=== PATIENT | female | born 2000 | race Caucasian/White ===

== ENCOUNTER 2021-05-11 10:24 | Inpatient (IN) ==
--- NOTE | 2021-05-11 10:36 | History & Physical Report ---
Date of Service May 11, 2021 Assessment & Plan (1) Active labor at term: (2) Post-dates : Plan: admit, iv, labs. will plan arom. does not desire epidural. will see if arom improves labor pattern History of Present Illness Chief Complaint: contractions Primary Care Provider: Flores Burton PA-C 20yo at 41+wks aneesh presents to L&D with above cc. Was seen in office and noting some ctx and cx exam 4-5cm and sent to L&D. No rom, no vb. PNC 1. teen PNL rhpos, ri, gbs neg, covid neg 05/07 OBH: g1 GYNH: nl paps no stds. 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 Beliefs That Will Affect Care: None marital status: Single marital status details: anila Lucero (20) [phone] Current Living Situation: Parent Current Living Situation Comment: Patient lives with her mother current occupational status: employed current occupation: [employer] Other Information That Helps Us Care for You: No Feels Safe at Home: No Is there a partner from a previous relationship who is making you feel unsafe now?: No Any Concerns about Your Family Situation: No Would You Like to Speak to Someone About Your Situation: No Safety Concerns: Feels Safe At This Time Assistive Devices: None Review of Systems as per Subjective / HPI Physical Exam Constitutional: WD/WN, vitals as above Respiratory: normal respiratory effort, lungs clear to auscultation Cardiovascular: Rate/Rhythm: regular rate and regular rhythm Gastrointestinal (Abdomen): soft gravid nt Musculoskeletal: no edema nontender calves Neurologic: grossly normal Psychiatric: A+Ox3, euthymic affect Genitourinary: OB Exam Monitor Tracing: + external FHT monitor used, + external uterine monitor used (q6), + category I and + normal FHT variability Coding Level of Care Code None Diagnoses Active labor at term Post-dates O48.0
[2021-05-11] MEDS ORDERED: OXYTOCIN 30 UNITS/500 ML BAG IV PRN ×2 (10:37→17:00)
[2021-05-11] MEDS: LACTATED RINGER'S 1,000 ML IV PRN ×4 (11:09→20:15)
[2021-05-11 11:16] LABS: Hematocrit (blood only) 40.1 % (37-47); Hemoglobin 13.7 g/dL (12.0-16.0); Mean Corpuscular Hemoglobin 31.8 pg (25-34); Mean Corpuscular Hgb Conc 34.2 g/dL (32-36); Mean Platelet Volume 11.5 fL (7.4-10.4); Platelet Count 240 K/uL (130-400); RDW Coefficient of Variation 13.7 % (11.5-14.5); RDW Standard Deviation 46.7 fL (36.4-46.3); Red Blood Count 4.31 M/uL (4.2-5.4); White Blood Count 17.18 K/uL (4.8-10.8)
--- NOTE | 2021-05-11 12:29 | Labor Progress Brief Note ---
Date of Service May 11, 2021 Subjective Patient noting contractions. Offered arom at this time and declines. Would like expectant management. Assessment & Plan (1) Active labor at term: Plan: Will allow expectant management for now. Will recheck in a couple of hours. If not change would recommend arom at that time. She is agreeable. Desires unmedicated. Admission and Anticipated Discharge Date Admission Date: May 11, 2021 Physical Exam Physical Exam: cx--4/80/-2/post toco--q3-5min efm--130s wtih mod variability, accels to 160s, no decels Results & Data ([facility]) Vital Signs (Past 12 Hours) Vital Signs Temp Pulse Resp BP 05/11/21 11:11 36.7 C 75 18 126/70 05/11/21 10:40 18 Coding Level of Care Code None Diagnoses Active labor at term
--- NOTE | 2021-05-11 14:36 | Labor Progress Brief Note ---
Date of Service May 11, 2021 Subjective has not accepted arom. ctx irregular. offered her d/c home vs. proceed with induction. not in active labor Assessment & Plan (1) Post-dates : (2) Encounter for induction of labor: Plan: Discussed with patient that cx not changed from prior examiner and no regular labor pattern. can offer induction today or d/c home and return in am as planned for induction. call sooner in labor. she agrees to proceed. discussed her nervousness about what is to come. allowed to ask questions and answered to best of my ability and to her apparent satisfaction. will see how arom helps labor pattern or will need to add pitocin which pt was also aware of before accepting arom. Admission and Anticipated Discharge Date Admission Date: May 11, 2021 Physical Exam Constitutional: WD/WN, vitals as above Genitourinary: Manual OB Exam: + cervical dilation 4 cm, + cervical effacement 80%, + station -2 and + amniotic fluid (AROM) meconium OB Exam Monitor Tr acing: + external FHT monitor used, + external uterine monitor used (q2-6), + category I and + normal FHT variability Results & Data ([facility]) Vital Signs (Past 12 Hours) Vital Signs Temp Pulse Resp BP 05/11/21 14:29 68 113/60 05/11/21 11:11 98.1 F 75 18 126/70 05/11/21 10:40 18 Coding Level of Care Code None Diagnoses Post-dates O48.0 Encounter for induction of labor Z34.90
[2021-05-11] MEDS ORDERED: SODIUM CHLORIDE 0.9% INJ 10 ML VIAL ONE (15:28)
[2021-05-11] MEDS ORDERED: BUPIVACAINE 0.25% 30 ML VIAL ONE (15:28)
[2021-05-11] MEDS ORDERED: fentaNYL citrate 100 MCG/2 ML VIAL ONE (15:28)
[2021-05-11] MEDS ORDERED: ePHEDrine sulfate 50 MG/ML AMP ONE (15:28)
[2021-05-11] MEDS ORDERED: fentaNYL 2MCG/ML ROPIVACAINE 1.25MG/ML 100 ML BAG EPI ONE (15:29)
[2021-05-11] MEDS ORDERED: ePHEDrine sulfate 50 MG/ML AMP IV PRN (16:14)
[2021-05-11] MEDS ORDERED: fentaNYL 2MCG/ML ROPIVACAINE 1.25MG/ML 100 ML BAG EPI PRN (16:14)
[2021-05-11] MEDS ORDERED: NALBUPHINE HCL INJ 10 MG/ML AMP IV PRN (16:14)
[2021-05-11] MEDS ORDERED: diphenhydrAMINE 50 MG/ML VIAL IV PRN (16:14)
[2021-05-11] MEDS ORDERED: NALOXONE HCL 1 MG in SODIUM CHLORIDE 0.9% 1000ML 1,000 ML IV PRN (16:14)
[2021-05-11] MEDS ORDERED: ONDANSETRON INJ 2 MG/ML 2 ML VIAL IV PRN (16:14)
[2021-05-11] MEDS ORDERED: NALOXONE HCL 0.4 MG/1 ML VIAL/CARP IV PRN (16:14)
--- NOTE | 2021-05-11 16:15 | Anesthesiology Consultation ---
Date of Service May 11, 2021 Assessment & Plan Chart Review Chart Review: Patient NOT seen in Pre Admission Testing and Acceptable Risk for Labor Epidural Consults Requested none ASA ASA2 Proposed Anesthesia Anesthesia Type: Labor Epidural and CSE Risk / Benefits Reviewed With: PT / POA / Parent / Guardian, Accepts Plan and Informed Consent Obtained History Height/Weight Height: 5 ft 3 in Weight: 84.368 kg Allergies Allergy/AdvReac Type Severity Reaction Status Date / Time No Known Allergies Allergy Verified 05/11/21 09:16 Medications Home Medications Medication Instructions Recorded Confirmed Last Taken No Known Home Medications 04/22/21 05/11/21 Unknown Active Medications Generic Name Dose Route Start Last Admin Trade Name Freq PRN Reason Stop Dose Admin Lactated Ringer's 1,000 mls @ 125 mls/hr 05/11/21 10:37 05/11/21 15:43 Lr IV 05/13/21 10:36 999 mls/hr .Q8H PRN Administration L&D Protocol Protocol NPO Date Last Intake of Fluids: 05/11/21 Time Last Intake of Fluids: 12:00 Date Last Intake of Solids: 05/10/21 Time Last Intake of Solids: 18:00 Past Medical History Medical History History of chicken pox Exercise / Class Metabolic Activity II 4-5 Yardwork/Stairs/Walk up hill Past Family History Family History Mother Diabetes Denies family history of Ovarian cancer Breast cancer Colorectal cancer Past Surgical History Surgical History No history of previous surgery Past Anesthesia History No Hx of Anesthesia Complications and No Family Hx of Anesthesia Complications History of PONV No Hx of PONV and No Hx of Motion Sickness Social History Smoking Status: Never smoker Hx Alcohol Use: No Hx Substance Use: No Review of Systems no chest pain or sob Physical Exam Vital Signs Last Vital Signs Temp 36.7 C 05/11/21 14:29 Pulse 80 05/11/21 16:11 Resp 16 05/11/21 14:29 BP 102/63 05/11/21 15:19 Pulse Ox 100 05/11/21 16:11 ENMT Mouth: no TMJ abnormality Thyromental Distance: > or= 3.5 Finger Breadths Mallampati Class: II Neck normal visual inspection Respiratory normal respiratory effort Auscultation: lungs clear to auscultation bilaterally Cardiovascular Rate/Rhythm: regular rate and regular rhythm Musculoskeletal Spine: normal cervical ROM Neurologic moves all extremities Psychiatric Orientation: alert and oriented x 3 Testing Laboratory Results 05/11/21 10:59
--- NOTE | 2021-05-11 17:02 | Labor Progress Brief Note ---
Date of Service May 11, 2021 Subjective pt now comfortable with epidural. Assessment & Plan (1) Post-dates : (2) Encounter for induction of labor: (3) Meconium in amniotic fluid: Plan: need to add pitocin as no evidence of labor since arom. fhts categ 1. Admission and Anticipated Discharge Date Admission Date: May 11, 2021 Physical Exam Constitutional: WD/WN, vitals as above Genitourinary: Manual OB Exam: + cervical dilation 4 cm, + cervical effacement 80% and + station -2 OB Exam Monitor Tracing: + external FHT monitor used, + external uterine monitor used (q2-5), + category I and + normal FHT variability Results & Data ([facility]) Vital Signs (Past 12 Hours) Vital Signs Temp Pulse Resp BP Pulse Ox 05/11/21 16:57 86 93/55 L 05/11/21 16:56 73 99 05/11/21 16:55 67 96/55 L 05/11/21 16:53 67 95/69 L 05/11/21 16:51 75 90/52 L 98 05/11/21 16:49 68 18 90/51 L 05/11/21 16:47 72 97/51 L 05/11/21 16:46 73 98 05/11/21 16:45 77 106/54 L 05/11/21 16:44 70 106/51 L 05/11/21 16:41 81 97 05/11/21 16:39 73 18 101/50 L 05/11/21 16:37 73 18 97/52 L 05/11/21 16:36 73 99/51 L 98 05/11/21 16:31 70 106/48 L 98 05/11/21 16:29 69 110/60 05/11/21 16:27 92 H 121/74 05/11/21 16:26 85 99 05/11/21 16:21 93 H 99 05/11/21 16:16 76 99 05/11/21 16:11 80 100 05/11/21 16:06 80 100 05/11/21 16:01 65 99 05/11/21 15:56 69 99 05/11/21 15:51 62 99 05/11/21 15:46 66 100 05/11/21 15:41 82 100 05/11/21 15:26 74 98 05/11/21 15:21 73 97 05/11/21 15:19 72 102/63 05/11/21 14:29 98.1 F 68 16 113/60 05/11/21 11:11 98.1 F 75 18 126/70 05/11/21 10:40 18 Coding Level of Care Code None Diagnoses Post-dates O48.0 Encounter for induction of labor Z34.90 Meconium in amniotic fluid P96.83
--- NOTE | 2021-05-11 19:58 | Labor Progress Brief Note ---
Date of Service May 11, 2021 Subjective pt comfortable Assessment & Plan (1) Post-dates : (2) Encounter for induction of labor: (3) Meconium in amniotic fluid: Plan: good cx change. pit at 3. will try amnioinfusion to see if fluid helps poss cord compression although last 5min better traced fhts and looks more like early decels. +scalp stim response. Admission and Anticipated Discharge Date Admission Date: May 11, 2021 Physical Exam Constitutional: WD/WN, vitals as above Genitourinary: Manual OB Exam: + cervical dilation 7 cm, + cervical effacement 100% and + station -1 OB Exam Monitor Tracing: + external FHT monitor used (120 mod variability, ?early decels vs variables), + intra-uterine pressure catheter used, + category II, + normal FHT variability and + variable decelerations Results & Data ([facility]) Vital Signs (Past 12 Hours) Vital Signs Temp Pulse Resp BP Pulse Ox 05/11/21 19:51 71 100 05/11/21 19:46 69 99 05/11/21 19:41 66 110/61 100 05/11/21 19:36 63 100 05/11/21 19:31 73 100 05/11/21 19:26 70 100 05/11/21 19:25 71 114/62 05/11/21 19:21 69 99 05/11/21 19:16 67 100 05/11/21 19:12 98.2 F 18 05/11/21 19:11 66 100 05/11/21 19:10 70 111/61 05/11/21 19:06 64 100 05/11/21 19:01 81 99 05/11/21 18:56 66 115/65 100 05/11/21 18:51 65 100 05/11/21 18:46 70 100 05/11/21 18:41 67 100 05/11/21 18:40 60 110/66 05/11/21 18:36 63 99 05/11/21 18:31 61 100 05/11/21 18:26 64 100 05/11/21 18:25 54 L 126/73 05/11/21 18:21 58 L 99 05/11/21 18:16 59 L 99 05/11/21 18:11 59 L 96 05/11/21 18:10 57 L 125/70 05/11/21 18:06 67 100 05/11/21 18:01 57 L 99 05/11/21 17:57 58 L 20 121/70 05/11/21 17:56 62 97 05/11/21 17:51 65 98 05/11/21 17:46 58 L 100 05/11/21 17:41 66 98 05/11/21 17:39 59 L 118/66 05/11/21 17:36 70 99 05/11/21 17:34 52 L 113/62 05/11/21 17:31 54 L 98 05/11/21 17:29 56 L 20 116/62 05/11/21 17:26 55 L 98 05/11/21 17:24 53 L 115/61 05/11/21 17:21 67 98 05/11/21 17:20 65 112/58 L 05/11/21 17:16 65 97 05/11/21 17:13 63 113/56 L 05/11/21 17:11 64 98 05/11/21 17:09 180/121 H 05/11/21 17:06 67 99 05/11/21 17:01 62 98 05/11/21 16:57 97.5 F L 86 18 93/55 L 05/11/21 16:56 73 99 05/11/21 16:55 67 18 96/55 L 05/11/21 16:53 67 95/69 L 05/11/21 16:51 75 18 90/52 L 98 05/11/21 16:49 68 18 90/51 L 05/11/21 16:47 72 18 97/51 L 05/11/21 16:46 73 98 05/11/21 16:45 77 18 106/54 L 05/11/21 16:44 70 18 106/51 L 05/11/21 16:41 81 97 05/11/21 16:39 73 18 101/50 L 05/11/21 16:37 73 18 97/52 L 05/11/21 16:36 73 99/51 L 98 05/11/21 16:31 70 106/48 L 98 05/11/21 16:29 69 110/60 05/11/21 16:27 92 H 121/74 05/11/21 16:26 85 99 05/11/21 16:21 93 H 99 05/11/21 16:16 76 99 05/11/21 16:11 80 100 05/11/21 16:06 80 100 05/11/21 16:01 65 99 05/11/21 15:56 69 99 05/11/21 15:51 62 99 05/11/21 15:46 66 100 05/11/21 15:41 82 100 05/11/21 15:26 74 98 05/11/21 15:21 73 97 05/11/21 15:19 72 102/63 05/11/21 14:29 98.1 F 68 16 113/60 05/11/21 11:11 98.1 F 75 18 126/70 05/11/21 10:40 18 Coding Level of Care Code None Diagnoses Post-dates O48.0 Encounter for induction of labor Z34.90 Meconium in amniotic fluid P96.83
[2021-05-11] MEDS ORDERED: OR MISCELLANEOUS MED XX ONE (21:02)
--- NOTE | 2021-05-11 21:27 | Labor Progress Brief Note ---
Date of Service May 11, 2021 Subjective no pain issues Assessment & Plan (1) Post-dates : (2) Encounter for induction of labor: (3) Meconium in amniotic fluid: Plan: fhts categ 1. good cx change. will anticip 2nd stage soon. pit has remained off. with good cx change will just give more time. Admission and Anticipated Discharge Date Admission Date: May 11, 2021 Physical Exam Constitutional: WD/WN, vitals as above Genitourinary: Manual OB Exam: + cervical dilation 9 cm, + cervical effacement 100% and + station 0 OB Exam Monitor Tracing: + external FHT monitor used, + intra-uterine pressure catheter used (q3), + category I (early decels +scalp stim response. ) and + normal FHT variability Results & Data ([facility]) Vital Signs (Past 12 Hours) Vital Signs Temp Pulse Resp BP Pulse Ox 05/11/21 21:21 63 100 05/11/21 21:16 92 H 100 05/11/21 21:11 66 100 05/11/21 21:10 63 103/57 L 05/11/21 21:06 68 99 05/11/21 21:01 69 100 05/11/21 20:56 78 99/57 L 100 05/11/21 20:51 62 100 05/11/21 20:46 64 100 05/11/21 20:41 65 100 05/11/21 20:40 69 99/54 L 05/11/21 20:36 71 100 05/11/21 20:31 72 100 05/11/21 20:30 18 05/11/21 20:26 67 100 05/11/21 20:21 73 100 05/11/21 20:16 66 100 05/11/21 20:11 84 100 05/11/21 20:10 66 111/63 05/11/21 20:06 72 100 05/11/21 20:01 66 100 05/11/21 20:00 18 05/11/21 19:56 70 100 05/11/21 19:55 75 113/62 05/11/21 19:51 71 100 05/11/21 19:46 69 99 05/11/21 19:41 66 110/61 100 05/11/21 19:36 63 100 05/11/21 19:31 73 100 03/21/22 19:26 70 100 05/11/21 19:25 71 114/62 05/11/21 19:21 69 99 05/11/21 19:16 67 100 05/11/21 19:12 98.2 F 18 05/11/21 19:11 66 100 05/11/21 19:10 70 111/61 05/11/21 19:06 64 100 05/11/21 19:01 81 99 05/11/21 18:56 66 115/65 100 05/11/21 18:51 65 100 05/11/21 18:46 70 100 05/11/21 18:41 67 100 05/11/21 18:40 60 110/66 05/11/21 18:36 63 99 05/11/21 18:31 61 100 05/11/21 18:26 64 100 05/11/21 18:25 54 L 126/73 05/11/21 18:21 58 L 99 05/11/21 18:16 59 L 99 05/11/21 18:11 59 L 96 05/11/21 18:10 57 L 125/70 05/11/21 18:06 67 100 05/11/21 18:01 57 L 99 05/11/21 17:57 58 L 20 121/70 05/11/21 17:56 62 97 05/11/21 17:51 65 98 05/11/21 17:46 58 L 100 05/11/21 17:41 66 98 05/11/21 17:39 59 L 118/66 05/11/21 17:36 70 99 05/11/21 17:34 52 L 113/62 05/11/21 17:31 54 L 98 05/11/21 17:29 56 L 20 116/62 05/11/21 17:26 55 L 98 05/11/21 17:24 53 L 115/61 05/11/21 17:21 67 98 05/11/21 17:20 65 112/58 L 05/11/21 17:16 65 97 05/11/21 17:13 63 113/56 L 05/11/21 17:11 64 98 05/11/21 17:09 180/121 H 05/11/21 17:06 67 99 05/11/21 17:01 62 98 05/11/21 16:57 97.5 F L 86 18 93/55 L 05/11/21 16:56 73 99 05/11/21 16:55 67 18 96/55 L 05/11/21 16:53 67 95/69 L 05/11/21 16:51 75 18 90/52 L 98 05/11/21 16:49 68 18 90/51 L 05/11/21 16:47 72 18 97/51 L 05/11/21 16:46 73 98 05/11/21 16:45 77 18 106/54 L 05/11/21 16:44 70 18 106/51 L 05/11/21 16:41 81 97 05/11/21 16:39 73 18 101/50 L 05/11/21 16:37 73 18 97/52 L 05/11/21 16:36 73 99/51 L 98 05/11/21 16:31 70 106/48 L 98 05/11/21 16:29 69 110/60 05/11/21 16:27 92 H 121/74 05/11/21 16:26 85 99 05/11/21 16:21 93 H 99 05/11/21 16:16 76 99 05/11/21 16:11 80 100 05/11/21 16:06 80 100 05/11/21 16:01 65 99 05/11/21 15:56 69 99 05/11/21 15:51 62 99 05/11/21 15:46 66 100 05/11/21 15:41 82 100 05/11/21 15:26 74 98 05/11/21 15:21 73 97 05/11/21 15:19 72 102/63 05/11/21 14:29 98.1 F 68 16 113/60 05/11/21 11:11 98.1 F 75 18 126/70 05/11/21 10:40 18 Coding Level of Care Code None Diagnoses Post-dates O48.0 Encounter for induction of labor Z34.90 Meconium in amniotic fluid P96.83
--- NOTE | 2021-05-12 00:34 | Delivery Summary ---
Vaginal Delivery Summary Date of Service May 12, 2021 Vaginal Delivery Summary and 1st Degree LAC The patient dilated to complete and pushed to deliver a viable male infant Apgars 8 and 9 via over 1st degree perineal laceration. Mouth and nose bulb suctioned at perineum. Double nuchal cord noted and delivered through. Shoulders and body delivered with ease. was crying at . Cord clamped at 20 seconds of life and to maternal abdomen where the cord was then doubly clamped and cut. Placenta delivered spontaneously and intact, three-vessel cord. Hemostasis achieved with dilute pitocin and uterine massage and drainage of the bladder for approximately 150 cc under sterile conditions. Cervix and sulci intact. Laceration repaired with 3-0 vicryl in usual fashion. EBL 300 cc. Mother and baby stable in recovery. Cord blood and cord gases obtained and placenta sent for pathology[place] [facility] [place] Delivery Type Details: and 1st Degree LAC
[2021-05-12 00:47] LABS: Base Excess Cord Venous Blood -5.2 mEq/L (-7.7-1.9); Cord Venous Blood HCO3 21 mmol/L (18.4-26.8); Cord Venous Blood PCO2 43 mmHg (30.4-57.2); Cord Venous Blood PO2 28 mmHg (14.1-43.3); Cord Venous Blood pH 7.31 (7.20-7.44)
[2021-05-12 00:48] LABS: Base Excess Cord Arterial Bld -9.7 mEq/L (-9-1.8); CO2 Cord Arterial Blood 52 mmHg (39.1-73.5); HCO3 Cord Arterial Blood 19 mmol/L (19.7-28.5); PO2 Cord Arterial Blood 24 mmHg (4.1-31.7); pH Cord Arterial Blood 7.18 (7.1-7.38)
[2021-05-12] MEDS ORDERED: OXYTOCIN 30 UNITS/500 ML BAG IV PRN (00:51)
[2021-05-12] MEDS ORDERED: BENZOCAINE 20% AER SPR 82.5 GM CAN EXT PRN (00:51)
[2021-05-12] MEDS ORDERED: DIPHTHERIA/TETANUS/PERTUSSIS 0.5 ML SYR/VIAL IM ONE (00:51)
[2021-05-12] MEDS ORDERED: OXYTOCIN 20 UNITS in LACTATED RINGER'S 1,000 ML IV SCH (00:51)
[2021-05-12] MEDS ORDERED: ACETAMINOPHEN 325 MG TAB PO PRN (00:51)
[2021-05-12] MEDS ORDERED: oxyCODONE/ACETAMINOPHEN 5mg/325mg TAB PO PRN (00:51)
[2021-05-12] MEDS ORDERED: HYDROCORTISONE ACETATE 25 MG SUPP PR PRN (00:51)
[2021-05-12 00:53] LABS: Oxygen Sat Cord Arterial Blood < 60.0 % (<60)
[2021-05-12 00:54] LABS: O2 Saturation Cord Venous Bld < 68.0 % (<68)
[2021-05-12] MEDS: IBUPROFEN 600 MG TAB PO PRN ×3 (02:15→23:43)
--- NOTE | 2021-05-12 07:23 | Anesthesia Procedure Note ---
Date of Service May 12, 2021 Anesthesia Post Epidural Note Vital Signs Vital Signs: Temp Pulse Resp BP Pulse Ox 37.2 C 80 18 109/56 L 96 05/12/21 00:30 05/12/21 02:14 05/12/21 02:30 05/12/21 02:14 05/12/21 00:11 Pain Intensity Lower Back: Pain Intensity: 5 Notes Mental Status: alert / awake / arousable and participated in evaluation Patient Amnestic to Procedure: No Nausea / Vomiting: adequately controlled Pain: adequately controlled Airway Patency, RR, SpO2: stable & adequate BP & HR: stable & adequate Hydration State: stable & adequate Neuraxial Anesthesia: was administered and sensory block resolved Anesthetic Complications: no major complications apparent and Pt Satisfied with anesthetic care Epidural: Removed without complications and With tip intact
[2021-05-12] MEDS: DOCUSATE SODIUM 100 MG CAP PO SCH ×2 (09:07→20:09)
[2021-05-12] MEDS: PRENATAL VITAMIN 1 TAB PO SCH (09:07)
--- NOTE | 2021-05-13 07:31 | Obstetrical Progress Note ---
Date of Service <John Zuniga MD - Last Filed: 05/13/21 07:31> May 13, 2021 Assessment & Plan <John Zuniga MD - Last Filed: 05/13/21 07:31> (1) Encounter for care and examination after delivery: PPD 1: stable, routine management * patient voiding and ambulating without difficulty * pain well controlled on analgesia * tolerating regular diet * * reassess d/c readiness tomorrow--baby scheduled for circumcision * observe on L&D floor today <Patti Mitchell MD, FACOG - Last Filed: 05/13/21 08:56> (1) Encounter for care and examination after delivery: Subjective <John Zuniga MD - Last Filed: 05/13/21 07:31> Danyelle is a 20 y/o female who is now PPD 1 following spontaneous vaginal delivery 41 weeks. Reports feeling well overall this morning. Mild cramping pain well managed on analgesics. Voiding well. Tolerating meals well and able to ambulate on her own. Lochia improved this morning. . Review of Systems Denies fever, chills, sweats Denies shortness of breath, difficulty breathing, chest pain, palpitations, chest pressure. Denies breast pain. Denies dysuria. Denies headache or changes in vision Physical Exam <John Zuniga MD - Last Filed: 05/13/21 07:31> General: Alert, oriented. No acute distress. Cardiac: Regular rate and rhythm, no murmurs/rubs/gallops. Respiratory: Clear to auscultation bilaterally a/p, no wheezes/rales/rhonchi. No increased work of breathing. Symmetrical chest rise. No respiratory distress. Abdomen: Soft, nontender, nondistended. Bowel sounds present. Uterus: Uterine fundus firm, palpable 1 cm below umbilicus. Lower Extremities: No lower extremity edema or swelling. No deep calf pain. Kevon's negative bilaterally.. Results & Data ([facility]) <John Zuniga MD - Last Filed: 05/13/21 07:31> Vital Signs (Past 12 Hours) Vital Signs Temp Pulse Resp BP 05/12/21 23:38 36.6 C 84 16 103/68 05/12/21 20:16 36.7 C 96 H 16 100/66 <Patti Mitchell MD, FACOG - Last Filed: 05/13/21 08:56> Co-Signing Physician Notes Resident Physician Supervision Note: I interviewed and examined the patient. Discussed with Dr. Zuniga and agree with findings and plan as documented in the note. Any exceptions or clarifications are listed here: [None] Documented By: Patti Mitchell MD, FACOG Resident Activity Tracking <John Zuniga MD - Last Filed: 05/13/21 07:31> Resident Involvement: Resident Care Provided Care Provided: OB Delivery
[2021-05-13] MEDS: IBUPROFEN 600 MG TAB PO PRN ×2 (08:59→18:31)
[2021-05-13] MEDS: PRENATAL VITAMIN 1 TAB PO SCH (08:59)
[2021-05-13] MEDS: DOCUSATE SODIUM 100 MG CAP PO SCH ×2 (08:59→21:12)
--- NOTE | 2021-05-14 07:14 | Obstetrical Progress Note ---
Date of Service <John Zuniga MD - Last Filed: 05/14/21 07:13> May 14, 2021 Assessment & Plan <John Zuniga MD - Last Filed: 05/14/21 07:13> (1) Encounter for care and examination after delivery: PPD 2: stable, routine management * patient voiding and ambulating without difficulty * pain well controlled * tolerating regular diet * breast diet feeding * d/c today * 6-week OB outpatient follow-up <Luis E Alejandre MD, FACOG - Last Filed: 05/14/21 07:21> (1) Encounter for care and examination after delivery: Subjective <John Zuniga MD - Last Filed: 05/14/21 07:13> Danyelle is a 20 y/o who is now PPD 2 following spontaneous vaginal delivery at 41 weeks. Reports feeling well overall this morning. Minimal cramping pain well managed without analgesics. Voiding well. Tolerating meals well and able to ambulate on her own. Lochia is much improved this morning. . Review of Systems Denies fever, chills, sweats Denies shortness of breath, difficulty breathing, chest pain, palpitations, chest pressure. Denies breast pain. Denies dysuria. Denies headache or changes in vision Physical Exam <John Zuniga MD - Last Filed: 05/14/21 07:13> General: Alert, oriented. No acute distress. Cardiac: Regular rate and rhythm, no murmurs/rubs/gallops. Respiratory: Clear to auscultation bilaterally a/p, no wheezes/rales/rhonchi. No increased work of breathing. Symmetrical chest rise. No respiratory distress. Abdomen: Soft, nontender, nondistended. Bowel sounds present. Uterus: Uterine fundus firm, palpable 1 cm below umbilicus. Lower Extremities: No lower extremity edema or swelling. No deep calf pain. Kevon's negative bilaterally.. Results & Data ([facility]) <John Zuniga MD - Last Filed: 05/14/21 07:13> Vital Signs (Past 12 Hours) Vital Signs Temp Pulse Resp BP Pulse Ox 05/13/21 23:40 36.6 C 80 18 106/68 05/13/21 19:40 36.7 C 79 18 111/65 97 <Luis E Alejandre MD, FACOG - Last Filed: 05/14/21 07:21> Co-Signing Physician Notes Resident Physician Supervision Note: I interviewed and examined the patient. Discussed with [Name of resident] and agree with findings and plan as documented in the note. Any exceptions or clarifications are listed here: [None] Documented By: Luis E Alejandre MD, FACOG Resident Activity Tracking <John Zuniga MD - Last Filed: 05/14/21 07:13> Resident Involvement: Resident Care Provided Care Provided: OB Delivery
[2021-05-14] MEDS: DOCUSATE SODIUM 100 MG CAP PO SCH (08:53)
[2021-05-14] MEDS: PRENATAL VITAMIN 1 TAB PO SCH (08:54)
[2021-05-14] MEDS: IBUPROFEN 600 MG TAB PO PRN (08:54)
== END 2021-05-14 12:45 | disposition home or self-care (01) | DRG 807 ==
LOC: OPB 10:24 → 4S1 10:25 → 4S3 05-12 02:42 → 4E2 05-12 02:43